=== PATIENT | male | born 1995 | race Caucasian/White ===

== ENCOUNTER 2017-10-14 09:07 | Emergency (ER) | payer OTHER ==
[~2017-10-14] VITALS: Ht 185.4 cm; Wt 108.9 kg
[~2017-10-14 09:07] MED LIST: OMEP20EC4 PO
[2017-10-14 09:12] VITALS: BP 157/84
[2017-10-14 10:15] VITALS: BP 150/82
== END 2017-10-14 10:15 | disposition home or self-care (01) ==
LOC: MED 09:07
DX: B35.6 Tinea cruris (principal); Z79.899 Other long term (current) drug therapy
CPT/HCPCS: 99283